=== PATIENT | male | born 1975 | race Caucasian/White ===

== ENCOUNTER → 2020-04-16 | Outpatient (CLI) | payer BC ==
--- NOTE | 2020-04-16 08:03 | US ---
EXAMINATION TYPE: US liver DATE OF EXAM: 04/16/2020 COMPARISON: NONE CLINICAL HISTORY: R74.8 ABN Levels of other serum enzymes. EXAM MEASUREMENTS: Liver Length: 14.2 cm Gallbladder Wall: 0.2 cm CBD: 0.5 cm Right Kidney: 9.7 x 5.9 x 4.9 cm Severe overlying bowel gas, technically difficult, limited study. Pancreas: Obscured by bowel gas Liver: Increased attenuation, probable focal fatty sparing adjacent to gallbladder Gallbladder: tiny echogenic foci, small stone vs debris Evidence for sonographic Noe's sign: CBD: wnl, limited visualization Right Kidney: No hydronephrosis or masses seen IMPRESSION: 1. Fatty liver with areas of focal fatty sparing. 2. Small stone versus debris of the gallbladder lumen.
== END | disposition home or self-care (01) ==
LOC: RADUSWWP 07:05
PROVIDERS: ATTEND Family Medicine
DX: K76.0 Fatty (change of) liver, not elsewhere classified (principal)
CPT/HCPCS: 76705